=== PATIENT | female | born 1980 | race American Indian/Alaskan Native ===

== ENCOUNTER 2017-04-15 13:18 | Emergency (ER) | payer OTHER ==
[2017-04-15 13:37] VITALS: BP 116/78
--- NOTE | 2017-04-15 14:13 | XRay Report ---
LEFT FOOT: Injury, pain. The bony architecture is intact. Bony alignment is normal. No soft tissue abnormalities are seen. The joint spaces appear preserved. IMPRESSION: Normal left foot.
--- NOTE | 2017-04-15 14:15 | XRay Report ---
LEFT ANKLE: Injury, pain. The bones are well mineralized with normal bony contours and joint alignment. No fractures or destructive changes are noted and the adjacent soft tissues are normal. IMPRESSION: Normal study.
== END 2017-04-15 17:27 | disposition home or self-care (01) ==
LOC: ED 13:18
DX: S93.402A Sprain of unspecified ligament of left ankle, initial encounter (principal); W18.30XA Fall on same level, unspecified, initial encounter; Y93.9 Activity, unspecified; Y92.9 Unspecified place or not applicable; Y99.9 Unspecified external cause status

== ENCOUNTER 2017-12-27 14:20 | Emergency (ER) | payer OTHER ==
[2017-12-27] MEDS ORDERED: NACL 0.9% 1000 ML 1,000 ML IV ONE (16:12)
--- NOTE | 2017-12-27 16:56 | Emergency Department Report ---
History of Present Illness - General Chief Complaint: Overdose Stated Complaint: POSSIBLE OVERDOSE Time Seen by Provider: 12/27/17 16:12 Source: family, EMS Mode of arrival: Stretcher Limitations: Altered Mental Status - History of Present Illness Initial Comments: History obtained from chart review and from her fianc. Patient works a riding coach. When she woke up this morning, she was lethargic and discoordinated. The patient's fianc was concerned. She is intermittently sleeping and difficult to arouse. EMS was called. Patient takes Ativan to help her sleep. He is concerned that she might thicken too much Ativan. He says that yesterday she was feeling her normal self. Denies any new mood changes. He does not believe that this was related to a suicide attempt. - Related Data Previous Rx's Medication Instructions Recorded Last Taken Type HYDROcodone/APAP 5-325 [[place] 1 each PO Q8HR PRN #15 tablet 12/27/17 Unknown Rx 5/325] Allergies Allergy/AdvReac Type Severity Reaction Status Date / Time ibuprofen AdvReac Bleeding Verified 04/15/17 13:27 tramadol AdvReac Swelling Verified 04/15/17 13:27 ED Review of Systems ROS: Stated complaint: POSSIBLE OVERDOSE Other details as noted in HPI ED Past Medical Hx - Past Medical History Hx Hypertension: No Hx Heart Attack/AMI: No Hx Congestive Heart Failure: No Hx Diabetes: No Hx Deep Vein Thrombosis: Yes (bilateral dvt) Hx Pulmonary Embolism: Yes (PE & DVT) Hx Liver Disease: No Hx Renal Disease: No Hx Sickle Cell Disease: No Hx Arthritis: No Hx Headaches / Migraines: Yes Hx Seizures: No Hx Kidney Stones: No Hx Asthma: No Hx COPD: No Hx Tuberculosis: No Hx Dementia: No Hx HIV: No Additional medical history: Hx of blood clots with a IVC filter. Dx with bilateral PE and DVT. Anemia - Surgical History Hx Coronary Stent: No Hx Open Heart Surgery: No Hx Pacemaker: No Hx Internal Defibrillator: No Hx Cholecystectomy: No Hx Appendectomy: No Hx Breast Surgery: No Additional Surgical History: , myomectomy, green field filter - Social History Smoking Status: Never Smoker Substance Use Type: None - Medications Home Medications: Home Medications Medication Instructions Recorded Confirmed Last Taken Type HYDROcodone/APAP 5-325 [[place] 1 each PO Q8HR PRN #15 tablet 12/27/17 Unknown Rx 5/325] ED Physical Exam - General Limitations: No Limitations General appearance: in no apparent distress, lethargic - Head Head exam: Present: atraumatic, normocephalic - Eye Eye exam: Present: normal appearance - ENT ENT exam: Present: mucous membranes moist - Expanded ENT Exam Expanded Teeth exam: Present: dental caries, dental tenderness # (#26), other ( edentulous on the top) - Neck Neck exam: Present: normal inspection - Respiratory Respiratory exam: Present: normal lung sounds bilaterally. Absent: respiratory distress - Cardiovascular Cardiovascular Exam: Present: regular rate, normal rhythm. Absent: systolic murmur, diastolic murmur, rubs, gallop - GI/Abdominal GI/Abdominal exam: Present: soft, normal bowel sounds - Extremities Exam Extremities exam: Present: normal inspection - Back Exam Back exam: Present: normal inspection - Neurological Exam Neurological exam: Present: altered, oriented X3, other (no focal deficit, moving all extremities.) - Psychiatric Psychiatric exam: Present: normal affect, normal mood - Skin Skin exam: Present: warm, dry, intact, normal color. Absent: rash ED Course Vital Signs 12/27/17 12/27/17 12/27/17 15:08 15:15 15:21 Temperature Pulse Rate 74 72 Respiratory 21 20 Rate Blood Pressure 121/77 127/78 O2 Sat by Pulse 100 100 100 Oximetry 12/27/17 12/27/17 12/27/17 15:30 15:46 16:00 Temperature Pulse Rate 73 86 76 Respiratory 24 14 18 Rate Blood Pressure 116/76 116/76 118/71 O2 Sat by Pulse 100 97 100 Oximetry 12/27/17 12/27/17 12/27/17 16:15 16:30 16:46 Temperature Pulse Rate 86 77 87 Respiratory 30 H 18 19 Rate Blood Pressure 121/76 135/75 135/75 O2 Sat by Pulse 100 100 99 Oximetry 12/27/17 12/27/17 12/27/17 17:00 17:16 17:30 Temperature Pulse Rate 80 72 72 Respiratory 17 24 23 Rate Blood Pressure 142/95 142/95 142/95 O2 Sat by Pulse 98 99 100 Oximetry 12/27/17 12/27/17 12/27/17 17:46 18:00 18:16 Temperature Pulse Rate 77 81 76 Respiratory 22 22 23 Rate Blood Pressure 142/95 142/95 142/95 O2 Sat by Pulse 99 98 100 Oximetry 12/27/17 12/27/17 12/27/17 18:30 18:46 19:00 Temperature Pulse Rate 75 69 69 Respiratory 15 22 24 Rate Blood Pressure 142/95 142/95 142/95 O2 Sat by Pulse 100 100 100 Oximetry 12/27/17 12/27/17 12/27/17 19:16 19:33 19:35 Temperature 98.0 F Pulse Rate 70 Respiratory 20 20 Rate Blood Pressure 142/95 O2 Sat by Pulse 100 100 Oximetry - Reevaluation(s) Reevaluation #1: Patient able to ambulate and eat without any difficulty. Demetrice feels comfortable taking her home. Patient appears to be back to baseline. 12/27/17 20:39 ED Medical Decision Making - Lab Data Result diagrams: 12/27/17 16:28 - EKG Data -: EKG Interpreted by Me EKG shows normal: sinus rhythm, axis, intervals, QRS complexes, ST-T waves Rate: normal - EKG Data Interpretation: no acute changes - Medical Decision Making 37-year-old female that presents for accidental overdose. When patient became more lucid, she stated that for the past couple weeks she's had horrible tooth pain. She followed up with her dentist who put her on amoxicillin and Percocet for management of pain. She has an appointment scheduled for next week to get her tooth fixed. She ran out of Percocet a week ago. The pain has been so intense that she started taking anything to try to help with the pain. Denies SI, HI, AVH. Her fianc who is at the bedside corroborates the story. Lab work and EKG are unremarkable. I have low suspicion that this was a suicide attempt. No indication for emergent psychiatric evaluation at this point time. Patient will be given tramadol to go home with. She has been instructed to follow-up with her dentist for further management of her pain. I've advised her against taking multiple medications to try to cope with the pain. She has been told to return to the ER if the pain becomes unbearable. - Differential Diagnosis intentional vs accidental overdose, arrhythmia, sepsis Critical care attestation.: If time is entered above; I have spent that time in minutes in the direct care of this critically ill patient, excluding procedure time. ED Disposition Clinical Impression: Accidental overdose, Pain due to dental caries Disposition: TO HOME OR SELFCARE Is pt being admited?: No Does the pt Need Aspirin: No Condition: Stable Instructions: Benzodiazepine Abuse (ED), Toothache (ED) Additional Instructions: Please follow up with your dentist for further management of your dental pain. Continue taking your antibiotics. Prescriptions: HYDROcodone/APAP 5-325 [[place] 5/325] 1 each PO Q8HR PRN #15 tablet PRN Reason: Pain Referrals: PRIMARY CARE, [Primary Care Provider] - 3-5 Days
[2017-12-27 17:07] LABS: Alanine Aminotransferase 10 units/L (7-56); Albumin 3.7 g/dL (3.9-5); BUN/Creatinine Ratio 27; Blood Urea Nitrogen 16 mg/dL (7-17); Calcium 8.6 mg/dL (8.4-10.2); Hemolysis Index 0
[2017-12-27 17:14] LABS: Bilirubin,Direct < 0.2 mg/dL (0-0.2)
[2017-12-27 19:35] VITALS: BP 142/95
[2017-12-27 20:12] LABS: Amphetamine Screen,Urine PRESUMPTIVE NEGATIVE; Cannabinoid Screen,Urine PRESUMPTIVE NEGATIVE; Cocaine Screen,Urine PRESUMPTIVE NEGATIVE; Methadone Screen,Urine PRESUMPTIVE NEGATIVE; Opiate Screen,Urine PRESUMPTIVE NEGATIVE
[2017-12-27 20:25] LABS: Benzodiazepines Screen,Urine PRESUMPTIVE POSITIVE
== END 2017-12-27 20:56 | disposition home or self-care (01) ==
LOC: ED 14:20
DX: T42.4X1A Poisoning by benzodiazepines, accidental (unintentional), initial encounter (principal); K02.9 Dental caries, unspecified; G43.909 Migraine, unspecified, not intractable, without status migrainosus; Z88.6 Allergy status to analgesic agent; Z88.8 Allergy status to other drugs, medicaments and biological substances; Y92.89 Other specified places as the place of occurrence of the external cause
CPT/HCPCS: 36415; 80048; 80074; 80307; 93005; 93010; 96360; 99284; G0480; J7030; 80320

== ENCOUNTER 2018-04-28 04:35 | Emergency (ER) | payer SELFPAY ==
[2018-04-28 05:13] VITALS: BP 148/94
--- NOTE | 2018-04-28 08:25 | Emergency Department Report ---
ED General Adult HPI - General Chief complaint: Extremity Problem,Nontraumatic Stated complaint: HIP PAIN Source: patient Mode of arrival: Ambulatory Limitations: No Limitations - History of Present Illness Initial comments: This is a 37-year-old -[place] female who presents with left hip and left arm pain for 1 day. Patient states she is unable to move left arm and hand and she is complaining of pain in left hip from unknown cause. Patient's partner is at bedside and states when he returned home from work yesterday she was complaining of pain to the left upper extremity and left hip. He placed her in to the to soak and applied ice the high window improvement of symptoms. States she noticed blisters to right hand on the palm and fifth digit. She is unsure if she burned herself while again bumped into something. Patient reports pain is 10 out of 10 on pain scale and worse with movement. Pain is a burning throbbing sensation. Patient states she had to come to the ambulance because she is in so much pain. Patient denies shortness of breath, chest pain , recent injury, numbness or tingling, bruising, and swelling. Onset/Timin -: days(s) Location: upper extremity (left upper extremity), lower extremity (left hip) Radiation: non-radiation Severity scale (0 -10): 8 Quality: burning, aching Consistency: constant Improves with: none Worsens with: movement Associated Symptoms: denies other symptoms Treatments Prior to Arrival: NSAID, heat therapy - Related Data Previous Rx's Medication Instructions Recorded Last Taken Type HYDROcodone/APAP 5-325 [[place] 1 each PO Q8HR PRN #15 tablet 12/27/17 Unknown Rx 5/325] Acetaminophen [Tylenol Arthritis] 650 mg PO Q6H PRN #12 tablet.er 04/28/18 Unknown Rx Bacitracin Zinc Oint [Antibiotic 1 applicatio TP BID #1 tube 04/28/18 Unknown Rx Oint] Allergies Allergy/AdvReac Type Severity Reaction Status Date / Time ibuprofen AdvReac Bleeding Verified 04/15/17 13:27 tramadol AdvReac Swelling Verified 04/15/17 13:27 ED Review of Systems ROS: Stated complaint: HIP PAIN Other details as noted in HPI Constitutional: denies: chills, fever Respiratory: denies: cough, shortness of breath, wheezing Cardiovascular: denies: chest pain, palpitations Gastrointestinal: denies: abdominal pain, nausea, diarrhea Musculoskeletal: arthralgia (left arm and left hip pain). denies: back pain, joint swelling Skin: lesions (blisters to right thumb and 5th digit). denies: rash Neurological: denies: headache, weakness, paresthesias Psychiatric: denies: anxiety, depression ED Past Medical Hx - Past Medical History Previous Medical History?: Yes Hx Hypertension: No Hx Heart Attack/AMI: No Hx Congestive Heart Failure: No Hx Diabetes: No Hx Deep Vein Thrombosis: Yes (bilateral dvt) Hx Pulmonary Embolism: Yes (PE & DVT) Hx Liver Disease: No Hx Renal Disease: No Hx Sickle Cell Disease: No Hx Arthritis: No Hx Headaches / Migraines: Yes Hx Seizures: No Hx Kidney Stones: No Hx Asthma: No Hx COPD: No Hx Tuberculosis: No Hx Dementia: No Hx HIV: No Additional medical history: Hx of blood clots with a IVC filter. Dx with bilateral PE and DVT. Anemia - Surgical History Hx Coronary Stent: No Hx Open Heart Surgery: No Hx Pacemaker: No Hx Internal Defibrillator: No Hx Cholecystectomy: No Hx Appendectomy: No Hx Breast Surgery: No Additional Surgical History: , myomectomy, green field filter - Social History Smoking Status: Never Smoker Substance Use Type: None - Medications Home Medications: Home Medications Medication Instructions Recorded Confirmed Last Taken Type HYDROcodone/APAP 5-325 [[place] 1 each PO Q8HR PRN #15 tablet 12/27/17 Unknown Rx 5/325] Acetaminophen [Tylenol Arthritis] 650 mg PO Q6H PRN #12 tablet.er 04/28/18 Unknown Rx Bacitracin Zinc Oint [Antibiotic 1 applicatio TP BID #1 tube 04/28/18 Unknown Rx Oint] ED Physical Exam - General Limitations: No Limitations General appearance: alert, in no apparent distress, obese - Respiratory Respiratory exam: Present: normal lung sounds bilaterally. Absent: respiratory distress - Cardiovascular Cardiovascular Exam: Present: regular rate, normal rhythm. Absent: systolic murmur, diastolic murmur, rubs, gallop - GI/Abdominal GI/Abdominal exam: Present: soft, normal bowel sounds - Expanded Upper Extremity Exam Left Shoulder Exam: Present: normal inspection, full ROM Upper Arm exam: Present: normal inspection, full ROM Elbow exam: Present: normal inspection, full ROM Forearm Wrist exam: Present: full ROM, tenderness (point tenderness to lateral with warmth) Hand Wrist exam: Present: normal inspection, full ROM Neuro motor exam: Present: wrist extension intact, thumb opposition intact, thumb IP flexion intact, thumb adduction intact, fingers 2-5 abduction intact Neurosensory exam: Present: radial nerve intact, ulnar nerve intact, median nerve intact Vascular: Present: normal capillary refill, radial pulse (+2) - Expanded Lower Extremity Exam Left Hip exam: Present: full ROM, tenderness (over trochanter). Absent: swelling, abrasion, laceration, ecchymosis, deformity, crepidus, dislocation, erythema, external rotation, internal rotation, shortening Upper Leg exam: Present: normal inspection, full ROM Knee exam: Present: normal inspection, full ROM Lower Leg exam: Present: normal inspection, full ROM Ankle exam: Present: normal inspection Foot/Toe exam: Present: normal inspection, full ROM Neuro vascular tendon exam: Present: no vascular compromise Gait: Positive: observed and limited by pain - Neurological Exam Neurological exam: Present: alert, oriented X3 - Psychiatric Psychiatric exam: Present: normal affect, normal mood - Skin Skin exam: Present: warm, dry, intact, normal color. Absent: rash ED Course Vital Signs 04/28/18 04/28/18 04/28/18 05:09 08:31 12:07 Temperature 99.3 F 98.0 F Pulse Rate 123 H 84 Respiratory 18 20 Rate Blood Pressure 148/94 O2 Sat by Pulse 100 Oximetry ED Medical Decision Making - Radiology Data Radiology results: report reviewed, image reviewed Left forearm: Pain. There is soft tissue edema extending along the mid and distal forearm along the radial and dorsal aspects. No underlying bone injury. No foreign body. No laceration. Impression: Soft tissue edema. Left hand: Limited motion on digits. Minimal edema is seen along the dorsal aspect of the hand extending from the forearm and wrist. Soft tissue findings are otherwise unremarkable. The bones and joints appear normal. Impression: Nonspecific swelling. LEFT HIP: Pain. The bony architecture is intact without evidence of fracture or dislocation. No significant soft tissue abnormality is seen. IMPRESSION: Normal left hip. Left forearm: Pain. There is soft tissue edema extending along the mid and distal forearm along the radial and dorsal aspects. No underlying bone injury. No foreign body. No laceration. Impression: Soft tissue edema. Left hand: Limited motion on digits. Minimal edema is seen along the dorsal aspect of the hand extending from the forearm and wrist. Soft tissue findings are otherwise unremarkable. The bones and joints appear normal. Impression: Nonspecific swelling. LEFT HIP: Pain. The bony architecture is intact without evidence of fracture or dislocation. No significant soft tissue abnormality is seen. IMPRESSION: Normal left hip. VASCULAR LAB.PRELIMINARY REPORT. LUE VENOUS DUPLEX DONE. NO EVIDENCE OF DVT/SVT IN VESSELS VISUALIZED. LLE VENOUS DUPLEX DONE. NO EVIDENCE OF DVT/SVT IN VESSELS VISUALIZED. - Medical Decision Making Patient was examined by me. Vitals are normal and patient is in no acute distress. Obtained a urinalysis and x-rays of left forearm, left hand, and left hip. X- rays dictated by radiologist and report reviewed by myself. No acute findings. Dupplex doppler obtained of LUE and LLE. No signs of DVT/SVT. Patient informed of results. Start ibuprofen and bacitracin for muscle strain and 1st degree burn. Referral to [facility] for follow up. Plan discussed with patient to discharge home and treat outpatient. Patient discharged home in stable condition. Follow up with PCP in 2-3 days. Critical care attestation.: If time is entered above; I have spent that time in minutes in the direct care of this critically ill patient, excluding procedure time. ED Disposition Clinical Impression: Arm pain, left, Left hip pain Blister of finger without infection Qualifiers: Encounter type: initial encounter Qualified Code(s): S60.429A - Blister ( nonthermal) of unspecified finger, initial encounter Muscle strain of left hip Qualifiers: Encounter type: initial encounter Qualified Code(s): S76.012A - Strain of muscle, fascia and tendon of left hip, initial encounter Muscle strain of left forearm Qualifiers: Encounter type: initial encounter Qualified Code(s): S56.912A - Strain of unspecified muscles, fascia and tendons at forearm level, left arm, initial encounter Superficial burn of finger of right hand Qualifiers: Encounter type: initial encounter Qualified Code(s): T23.121A - Burn of first degree of single right finger (nail) except thumb, initial encounter Disposition: TO HOME OR SELFCARE Is pt being admited?: No Does the pt Need Aspirin: No Condition: Stable Instructions: Muscle Strain (ED), Superficial Burn (ED), Arthralgia (ED) Additional Instructions: Rest Use ice or heat on affected area for 20 minutes and off for 2 hours. Take pain medication as needed for pain. Up by family or bacitracin ointment to wounds twice a day. Follow up with Primary Care Provider in 2-3 days. Prescriptions: Acetaminophen [Tylenol Arthritis] 650 mg PO Q6H PRN #12 tablet.er PRN Reason: Pain , Severe (7-10) Bacitracin Zinc Oint [Antibiotic Oint] 1 applicatio TP BID #1 tube Referrals: DANIEL LANIER MD [Primary Care Provider] - 3-5 Days [facility] [Outside] - 3-5 Days [facility] [Outside] - 3-5 Days [facility] [Outside] - 3-5 Days Forms: Work/School Release Form(ED) Time of Disposition: 11:44 Print Language: [place]
[2018-04-28] MEDS ORDERED: NORCO 5/325 PO ONE (08:26)
--- NOTE | 2018-04-28 09:45 | XRay Report ---
Left forearm: Pain. There is soft tissue edema extending along the mid and distal forearm along the radial and dorsal aspects. No underlying bone injury. No foreign body. No laceration. Impression: Soft tissue edema. Left hand: Limited motion on digits. Minimal edema is seen along the dorsal aspect of the hand extending from the forearm and wrist. Soft tissue findings are otherwise unremarkable. The bones and joints appear normal. Impression: Nonspecific swelling. LEFT HIP: Pain. The bony architecture is intact without evidence of fracture or dislocation. No significant soft tissue abnormality is seen. IMPRESSION: Normal left hip.
--- NOTE | 2018-04-30 15:18 | Vascular Lab Report ---
LEFT UPPER EXTREMITY VENOUS DUPLEX: REASON FOR EXAM: Pain and swelling of the left upper extremity COMMENTS ON THE LEFT: All arm veins visualized are freely compressible without evidence of internal echogenicity. The subclavian and internal jugular veins are free of thrombus. Flow is spontaneous and phasic throughout. COMMENTS ON THE RIGHT: A limited study of the jugular and subclavian veins shows no evidence of thrombus. IMPRESSION: No evidence of acute or chronic deep venous thrombosis in the left upper extremity.
== END 2018-04-28 12:17 | disposition home or self-care (01) ==
LOC: ED 04:35
DX: S76.012A Strain of muscle, fascia and tendon of left hip, initial encounter (principal); S56.912A Strain of unspecified muscles, fascia and tendons at forearm level, left arm, initial encounter; T23.121A Burn of first degree of single right finger (nail) except thumb, initial encounter; S60.521A Blister (nonthermal) of right hand, initial encounter; I26.99 Other pulmonary embolism without acute cor pulmonale; G43.909 Migraine, unspecified, not intractable, without status migrainosus; Z86.718 Personal history of other venous thrombosis and embolism; Z88.6 Allergy status to analgesic agent; X58.XXXA Exposure to other specified factors, initial encounter; Y93.89 Activity, other specified; Y92.89 Other specified places as the place of occurrence of the external cause; Y99.8 Other external cause status

== ENCOUNTER 2019-06-29 01:04 | Emergency (ER) | payer SELFPAY ==
[2019-06-29 01:09] VITALS: BP 132/94
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
== END 2019-06-29 03:39 | disposition home or self-care (01) ==
LOC: ED 01:04
DX: S40.012A Contusion of left shoulder, initial encounter (principal); S70.02XA Contusion of left hip, initial encounter; G43.909 Migraine, unspecified, not intractable, without status migrainosus; Z88.5 Allergy status to narcotic agent; Z79.899 Other long term (current) drug therapy; Z86.718 Personal history of other venous thrombosis and embolism; Z86.711 Personal history of pulmonary embolism; Z86.2 Personal history of diseases of the blood and blood-forming organs and certain disorders involving the immune mechanism; V89.2XXA Person injured in unspecified motor-vehicle accident, traffic, initial encounter; Y93.89 Activity, other specified; Y92.488 Other paved roadways as the place of occurrence of the external cause; Y99.8 Other external cause status
CPT/HCPCS: 99282

== ENCOUNTER 2019-07-16 09:38 | Emergency (ER) | payer BC ==
[2019-07-16 10:49] VITALS: BP 150/100
--- NOTE | 2019-07-16 10:56 | Emergency Department Report ---
Chief Complaint: Eye Problems Stated Complaint: RT EYE PINK Time Seen by Provider: 07/16/19 10:48 - HPI History of Present Illness: 38 y/o female comes in for right eye irritation since last night. No fever or chills. - Exam Vital Signs: Vital Signs 07/16/19 10:48 Temperature 98.1 F Pulse Rate 94 H Respiratory 18 Rate Blood Pressure 150/100 O2 Sat by Pulse 98 Oximetry Physical Exam: right eye drainage. sclera injected no purulent drainage ambulating well MSE screening note: Focused history and physical exam performed. Due to findings the following was ordered: referred to Dr. Donovan ED Disposition for MSE Condition: Stable
== END 2019-07-16 10:48 ==
LOC: ED 09:38
DX: H57.11 Ocular pain, right eye (principal)
CPT/HCPCS: 99281

== ENCOUNTER 2020-11-20 04:37 | Emergency (ER) | payer SELFPAY ==
[2020-11-20 05:27] LABS: Basophils # (Auto) 0.1 K/mm3 (0.0-0.1); Basophils % (Auto) 1.4 % (0.0-1.8); Eosinophils # (Auto) 0.1 K/mm3 (0.0-0.4); Eosinophils % (Auto) 1.1 % (0.0-4.3); Hematocrit 36.5 % (30.3-42.9); Hemoglobin 11.5 gm/dl (10.1-14.3); Lymphocytes # (Auto) 1.3 K/mm3 (1.2-5.4); Lymphocytes % (Auto) 26.3 % (13.4-35.0); Mean Corpuscular HGB Conc 32 % (30-34); Mean Corpuscular Volume 77 fl (79-97); Monocytes # (Auto) 0.7 K/mm3 (0.0-0.8); Monocytes % (Auto) 14.2 % (0.0-7.3); Platelet Count 341 K/mm3 (140-440); Red Blood Count 4.74 M/mm3 (3.65-5.03)
[2020-11-20 05:28] LABS: Red Cell Distribution Width 21.3 % (13.2-15.2)
[2020-11-20 05:47] LABS: Blood Urea Nitrogen 7 mg/dL (7-17); Calcium 8.9 mg/dL (8.4-10.2); Hemolysis Index 1
[2020-11-20 05:48] LABS: BUN/Creatinine Ratio 14
--- NOTE | 2020-11-20 09:42 | Event Note ---
ED Screening Note ED Screening Note: ENLARGED ABD VOMITING BLOOD VAGINAL BLEEDING -NEW NO PMH NO C/E/D This initial assessment/diagnostic orders/clinical plan/treatment(s) is/are subject to change based on patients health status, clinical progression and re- assessment by fellow clinical providers in the ED. Further treatment and workup at subsequent clinical providers discretion. Patient/guardian urged not to elope from the ED as their condition may be serious if not clinically assessed and managed. Initial orders include: LABS ADDED UA KUB WILL NEED FURTHER EVAL ? ASCITES
[2020-11-20 10:40] LABS: INR 1.1 (0.87-1.13)
[2020-11-20 10:43] LABS: Albumin 3.7 g/dL (3.9-5); Bilirubin,Direct 0.5 mg/dL (0-0.2)
--- NOTE | 2020-11-20 10:53 | Emergency Department Report ---
ED Abdominal Pain HPI - General Chief Complaint: GI Bleed Stated Complaint: SPITTING UP BLOOD Time Seen by Provider: 11/20/20 09:39 Source: patient Mode of arrival: Ambulatory Limitations: No Limitations - History of Present Illness Initial Comments: 40-year-old female, history of anemia and dysfunctional uterine bleeding status post hysterectomy, history of PE and DVTs status post IVC filter (not only on anticoagulation), presents to ED with progressively worsening abdominal pain over the last 3 months. Patient states pain is located in the upper abdomen, epigastric area. Patient describes the pain as a pulling pain, states feels like gas. Patient states she has been taking Gas-X pills for relief, but they are not helping. Patient states she has noticed over the last 1.5 months that her stomach has been getting progressively bigger. She reports 3 days ago she noticed that she had dark-colored stools, but it has since lightened up. Today, patient reports she went to the bathroom and noticed blood clots in the toilet. Patient believes this was vaginal, however she reports having a hysterectomy approximately 6 years ago. Patient states it was not rectal bleeding. Also, this morning, patient reports an episode of vomiting in which she noticed blood streaked in with food contents. MD Complaint: abdominal pain -: month(s) (3) Location: epigastric Radiation: back Migration to: no migration Severity: moderate Quality: aching, fullness Consistency: intermittent Improves With: nothing Worsens With: eating, other (walking) Associated Symptoms: nausea, vomiting, melena. denies: fever - Related Data Previous Rx's Medication Instructions Recorded Last Taken Type Bacitracin Zinc Oint [Antibiotic 1 applicatio TP BID #1 tube 04/28/18 Unknown Rx Oint] methOCARBAMOL [Robaxin TAB] 500 mg PO Q6H #20 tablet 06/29/19 Unknown Rx Amlodipine Besylate [Norvasc] 5 mg PO QDAY #30 tablet 11/20/20 Unknown Rx Dicyclomine [Bentyl] 20 mg PO QID PRN #20 tablet 11/20/20 Unknown Rx HYDROcodone/APAP 5-325 [Savage 1 each PO Q6HR PRN #7 tablet 11/20/20 Unknown Rx 5/325] Allergies Allergy/AdvReac Type Severity Reaction Status Date / Time ibuprofen AdvReac Bleeding Verified 04/15/17 13:27 tramadol AdvReac Swelling Verified 04/15/17 13:27 ED Review of Systems ROS: Stated complaint: SPITTING UP BLOOD Other details as noted in HPI Comment: All other systems reviewed and negative Constitutional: denies: chills, fever Gastrointestinal: abdominal pain, nausea, vomiting, melena ED Past Medical Hx - Past Medical History Previous Medical History?: Yes Hx Hypertension: No Hx Heart Attack/AMI: No Hx Congestive Heart Failure: No Hx Diabetes: No Hx Deep Vein Thrombosis: Yes (DVT BLE) Hx Pulmonary Embolism: Yes (PE & DVT) Hx Liver Disease: No Hx Renal Disease: No Hx Sickle Cell Disease: No Hx Arthritis: No Hx Headaches / Migraines: Yes Hx Seizures: No Hx Kidney Stones: No Hx Asthma: No Hx COPD: No Hx Tuberculosis: No Hx Dementia: No Hx HIV: No Additional medical history: Hx of blood clots with a IVC filter. Dx with bilateral PE and DVT. Anemia - Surgical History Past Surgical History?: Yes Hx Coronary Stent: No Hx Open Heart Surgery: No Hx Pacemaker: No Hx Internal Defibrillator: No Hx Cholecystectomy: No Hx Appendectomy: No Hx Breast Surgery: No Additional Surgical History: , myomectomy, green field filter. hysterectomy - Social History Smoking Status: Never Smoker Substance Use Type: None - Medications Home Medications: Home Medications Medication Instructions Recorded Confirmed Last Taken Type Bacitracin Zinc Oint [Antibiotic 1 applicatio TP BID #1 tube 04/28/18 Unknown Rx Oint] methOCARBAMOL [Robaxin TAB] 500 mg PO Q6H #20 tablet 06/29/19 Unknown Rx Amlodipine Besylate [Norvasc] 5 mg PO QDAY #30 tablet 11/20/20 Unknown Rx Dicyclomine [Bentyl] 20 mg PO QID PRN #20 tablet 11/20/20 Unknown Rx HYDROcodone/APAP 5-325 [Savage 1 each PO Q6HR PRN #7 tablet 11/20/20 Unknown Rx 5/325] ED Physical Exam - General Limitations: No Limitations General appearance: alert, in no apparent distress - Head Head exam: Present: atraumatic, normocephalic - Eye Eye exam: Present: normal appearance, EOMI - ENT ENT exam: Present: mucous membranes moist - Neck Neck exam: Present: normal inspection - Respiratory Respiratory exam: Present: normal lung sounds bilaterally. Absent: respiratory distress - Cardiovascular Cardiovascular Exam: Present: normal rhythm, tachycardia - GI/Abdominal GI/Abdominal exam: Present: soft, distended, tenderness (epigastric, RUQ, LUQ), organomegaly (hepatomegaly present) - Rectal Rectal exam: Present: heme (+) stool - External exam: Present: normal external exam Speculum exam: Present: normal speculum exam. Absent: vaginal bleeding - Extremities Exam Extremities exam: Present: normal inspection - Neurological Exam Neurological exam: Present: alert, oriented X3 - Psychiatric Psychiatric exam: Present: normal affect, normal mood - Skin Skin exam: Present: warm, dry, intact, normal color ED Course Vital Signs 11/20/20 11/20/20 11/20/20 04:43 07:49 10:32 Temperature 98.9 F Pulse Rate 122 H 112 H Respiratory 18 Rate Blood Pressure 182/122 Blood Pressure 191/109 [Right] O2 Sat by Pulse 95 99 Oximetry 11/20/20 11/20/20 11/20/20 10:40 11:00 12:00 Temperature Pulse Rate 108 H 104 H Respiratory 12 Rate Blood Pressure 173/107 171/103 Blood Pressure 175/102 [Right] O2 Sat by Pulse 98 99 100 Oximetry 11/20/20 14:23 Temperature Pulse Rate 103 H Respiratory Rate Blood Pressure Blood Pressure 173/98 [Right] O2 Sat by Pulse 98 Oximetry - Consultations Consultation #1: 11/20/20 14:[address] Wiley, relayed exam, lab and CT findings. States patient can follow-up outpatient for MRI and colonoscopy. ED Medical Decision Making - Lab Data Result diagrams: 11/20/20 05:13 11/20/20 05:13 - Radiology Data Radiology results: report reviewed, image reviewed - Medical Decision Making 40 yo F w/ progressively worsening abdominal pain and distention with some GI bleeding. Hemoglobin stable. CT worrisome for malignancy. I have explained to pt the CT findings. I spoke w/ Dr Wiley, GI, who states pt needs to f/u on an outpatient basis for scope and MRI. This has been explained to the pt, including the possiblility of cancer. Pt will be discharge at this time with prescriptions. Return precautions given. - Differential Diagnosis cirrhosis, fatty liver, pancreatitis, GI bleed Critical care attestation.: If time is entered above; I have spent that time in minutes in the direct care of this critically ill patient, excluding procedure time. ED Disposition Clinical Impression: Hepatomegaly, Liver masses, Hypertension, GI bleed Disposition: DC-01 TO HOME OR SELFCARE Is pt being admited?: No Condition: Stable Instructions: Hepatomegaly, [id number], Managing Your Hypertension, Hypertension (ED) Prescriptions: Dicyclomine [Bentyl] 20 mg PO QID PRN #20 tablet PRN Reason: abdominal pain HYDROcodone/APAP 5-325 [Savage 5/325] 1 each PO Q6HR PRN #7 tablet PRN Reason: Pain Amlodipine Besylate [Norvasc] 5 mg PO QDAY #30 tablet Referrals: IAN DE LA ROSA MD [Staff Physician] - 3-5 Days [facility] [Provider Group] - 3-5 Days [facility] [Provider Group] - [place] Forms: Accompanied Note, Work/School Release Form(ED) Time of Disposition: 14:26
[2020-11-20] MEDS ORDERED: ONDANSETRON 4 MG/2 ML INJ IV ONE (11:05)
[2020-11-20] MEDS ORDERED: MORPHINE 2 MG/1 ML INJ IV ONE (11:05)
[2020-11-20] MEDS ORDERED: PANTOPRAZOLE 40 MG INJ IV ONE (11:06)
--- NOTE | 2020-11-20 12:56 | Cat Scan Report ---
CT ABDOMEN AND PELVIS WITH CONTRAST HISTORY: Abdominal pain and distention COMPARISON: None TECHNIQUE: Routine abdominal and pelvic CT exam performed following intravenous contrast administrat ion. The patient received [address] All [address] scans at this location are performed using CT dose reduction for ALARA by means of automated exposure control. FINDINGS: CT ABDOMEN: Lung Bases: No significant abnormality. Liver: There is a global heterogeneous appearance of the liver parenchyma with enlargement of the guerita er, measuring 21 cm in length. There is a probable discrete heterogeneous mass in the anterior left h epatic lobe measuring 10.7 x 10.4 cm. A second discrete masslike area is seen in the lateral right he patic lobe measuring 5.8 cm. There is a small amount of abdominal ascites. Biliary: No significant abnormality. Spleen: No significant abnormality. Unenlarged. Pancreas: No significant abnormality. Adrenals: No significant abnormality. Kidneys: No significant abnormality. Lymphatics: No lymphadenopathy. Vasculature: Infrarenal IVC filter in place Bowel/Peritoneum: No significant abnormality. No free air. No free fluid. Normal appendix. CT PELVIC: : No significant abnormality. Lymphatics: No lymphadenopathy. Osseous Structures: No aggressive appearing osseous lesions. Additional Findings: None IMPRESSION: 1. Hepatomegaly with diffuse heterogeneous appearance of the liver parenchyma as well as multiple rigoberto arent masslike areas. Findings are concerning for either primary hepatocellular disease (such as hepa titis or hepatic steatosis) with possible superimposed hepatocellular carcinoma or metastatic disease to the liver. MRI of the liver without and with contrast would be helpful for further delineation of discrete liver masses. 2. IVC Filter Recommendation: IVC filters should be removed if possible when they are no longer clini bernabe necessary. (1) Refer to the established IVC filter management plan; (2) If there is no establis hed plan for the patient's IVC filter, consider referral to interventional/vascular clinician on a no nemergent basis for evaluation. Signer Name: Jagjit Gonzalez MD Signed: 11/20/2020 12:52 PM Workstation Name: [email or web address]
--- NOTE | 2020-11-20 13:47 | XRay Report ---
ABDOMEN 3 VIEW(S) INDICATION / CLINICAL INFORMATION: PAIN. COMPARISON: None available. FINDINGS: TUBES / LINES: None. BOWEL GAS PATTERN: No significant abnormality. FREE AIR / EXTRALUMINAL GAS: None seen. ADDITIONAL FINDINGS: Infrarenal IVC filter noted. Liver appears enlarged. LUNGS: Visualized lungs show no significant abnormality. IMPRESSION: 1. Apparent hepatomegaly. 2. IVC Filter Recommendation: IVC filters should be removed if possible when they are no longer clini bernabe necessary. (1) Refer to the established IVC filter management plan; (2) If there is no establis hed plan for the patient's IVC filter, consider referral to interventional/vascular clinician on a no nemergent basis for evaluation. Signer Name: Jagjit Gonzalez MD Signed: 11/20/2020 1:43 PM Workstation Name: [facility]
[2020-11-20 14:23] VITALS: BP 173/98
[2020-11-20] MEDS ORDERED: MORPHINE 4 MG/1 ML INJ IV ONE (14:25)
== END 2020-11-20 15:00 | disposition home or self-care (01) ==
LOC: ED 04:37
DX: R16.0 Hepatomegaly, not elsewhere classified (principal); I10 Essential (primary) hypertension; K92.2 Gastrointestinal hemorrhage, unspecified; G43.909 Migraine, unspecified, not intractable, without status migrainosus; Z79.899 Other long term (current) drug therapy; Z88.8 Allergy status to other drugs, medicaments and biological substances
CPT/HCPCS: 36415; 74022; 74177; 80048; 80076; 83690; 85025; 85610; 96374; 96375; 96376; 99284; C9113; J2270; J2405; Q9967